=== PATIENT | female | born 2000 | race Caucasian/White ===

== ENCOUNTER → 2019-04-21 14:48 | Outpatient (BNVA) | payer MEDICAID, SELFPAY | PROVIDERS: Family Provider Family Medicine; PCP Family Medicine; Visit Provider Counselor Professional | DX: F90.2 Attention-deficit hyperactivity disorder, combined type; F79 Unspecified intellectual disabilities | CPT/HCPCS: 90834 ==

== ENCOUNTER → 2019-06-13 10:41 | Outpatient (BNVA) | payer MEDICAID, SELFPAY | PROVIDERS: Family Provider Family Medicine; PCP Family Medicine; Visit Provider Counselor Professional | DX: F79 Unspecified intellectual disabilities (principal); F90.2 Attention-deficit hyperactivity disorder, combined type | CPT/HCPCS: 90834 ==

== ENCOUNTER → 2020-01-18 08:38 | Outpatient (BNVA) | payer MEDICAID, SELFPAY | PROVIDERS: Family Provider Family Medicine; PCP Family Medicine; Visit Provider Counselor Professional | DX: F79 Unspecified intellectual disabilities (principal); F40.10 Social phobia, unspecified | CPT/HCPCS: 90834 ==

== ENCOUNTER → 2020-01-25 07:58 | Outpatient (BNVA) | payer MEDICAID, SELFPAY | PROVIDERS: Family Provider Family Medicine; PCP Family Medicine; Visit Provider Counselor Professional | DX: F79 Unspecified intellectual disabilities (principal); F40.10 Social phobia, unspecified | CPT/HCPCS: 90834 ==

== ENCOUNTER → 2020-02-01 08:10 | Outpatient (BNVA) | payer MEDICAID, SELFPAY | PROVIDERS: Family Provider Family Medicine; PCP Family Medicine; Visit Provider Counselor Professional | DX: F79 Unspecified intellectual disabilities (principal); F40.10 Social phobia, unspecified | CPT/HCPCS: 90834 ==

== ENCOUNTER → 2020-02-15 08:25 | Outpatient (BNVA) | payer MEDICAID, SELFPAY | PROVIDERS: Family Provider Family Medicine; PCP Family Medicine; Visit Provider Counselor Professional | DX: F79 Unspecified intellectual disabilities (principal); F40.10 Social phobia, unspecified | CPT/HCPCS: 90834 ==